=== PATIENT | female | born 1935 | race Caucasian/White ===

== ENCOUNTER 2017-04-02 21:36 | Emergency (ER) | payer MEDICARE, BC ==
[~2017-04-02] VITALS: Ht 160 cm; Wt 60.0 kg
[~2017-04-02 21:36] MED LIST: ARNIGEL TOP; LORTA5 PO; TAB-TAB PO; TIMO0.5S29 EACH EYE; WARF2.5 PO; ZOLP5TAB3 PO
[2017-04-02 21:53] VITALS: BP 144/92; PULSE 79; RESP 18; TEMP 98.3; O2SAT 97
[2017-04-02 22:00] VITALS: O2SAT 99
[2017-04-02] MEDS ORDERED: SODIUM CHLORIDE 0.9% FLUSH 10 ML FLUSH IVF PRN (22:00)
[2017-04-02] MEDS ORDERED: COUM2.5T PO (22:04)
[2017-04-02] MEDS ORDERED: AMBI5TAB PO (22:04)
[2017-04-02] MEDS ORDERED: TRAM50TA PO (22:04)
[2017-04-02 22:55] LABS: AUTOMATED NEUTROPHIL # 3.7 TH/MM3 (1.8-7.7); BASOPHIL % 0.1 % (0.0-2.0); HEMATOCRIT 36.2 % (35.0-46.0); HEMO FLAGS DIFF FINAL; LYMPHOCYTE # 2.7 TH/MM3 (1.0-4.8); MEAN CELL VOLUME 92.6 FL (80.0-100.0); MEAN CORPUSCULAR HEMOGLOBIN 31.9 PG (27.0-34.0); MEAN CORPUSCULAR HGB CONC 34.5 % (32.0-36.0); MONO % 12.6 % (0.0-8.0); NEUT % 50.3 % (16.0-70.0); PLATELET COUNT 189 TH/MM3 (150-450); RED BLOOD COUNT 3.91 MIL/MM3 (4.00-5.30); RED CELL DISTRIBUTION WIDTH 13.7 % (11.6-17.2); WHITE BLOOD COUNT 7.4 TH/MM3 (4.0-11.0)
[2017-04-02 23:05] LABS: BLOOD, URINE NEG (NEG); COMMENT (UR) CATH-CULT NOT IND; CULTURE IF INDICATED CATH CULTURE NOT IND; GLUCOSE,URINE NEG (NEG); KETONE, URINE NEG (NEG); MUCUS URINE FEW /lpf (OCC); NITRITE,URINE NEG (NEG); SQUAMOUS EPITHELIAL CELL URINE <1 /hpf (0-5); URINE COLOR LIGHT-YELLOW (YELLW/STRAW)
[2017-04-02 23:17] LABS: BICARBONATE 26.3 MEQ/L (21.0-32.0); POTASSIUM 3.6 MEQ/L (3.5-5.1)
[2017-04-03] MEDS ORDERED: cefTRIAXone INJ 1,000 MG in SODIUM CHLORIDE 0.9% INJ 100 ML IV ONE ×2
[2017-04-03] MEDS ORDERED: POTA595T (00:01)
[2017-04-03] MEDS ORDERED: CELE1CAP8 PO (00:01)
[2017-04-03] MEDS ORDERED: MAGN500T5 PO (00:01)
[2017-04-03] MEDS ORDERED: PRAV20TA2 PO (00:01)
[2017-04-03] MEDS ORDERED: TIMO0.5S30 EACH EYE (00:01)
[2017-04-03] MEDS ORDERED: DONE10TA7 PO (00:01)
[2017-04-03] MEDS ORDERED: L-LY500C2 (00:01)
[2017-04-03] MEDS ORDERED: CENTTAB PO (00:01)
[2017-04-03] MEDS ORDERED: MEMA28CA PO (00:01)
[2017-04-03] MEDS ORDERED: DICLOFENAC (00:01)
[2017-04-03] MEDS ORDERED: TRAV0.00 EACH EYE (00:01)
[2017-04-03] MEDS ORDERED: CEPH-460 PO (00:04)
--- NOTE | 2017-04-03 00:05 | PD ---
HPI . Altered mental status Chief Complaint: Medical Clearance Time Seen by Provider: 21:53 Travel History International Travel<30 days: No Contact w/Intl Traveler<30days: No Traveled to known affect area: No History of Present Illness HPI Patient was brought to us by [facility] with the chief complaint, per the patient's , of altered mental status. The patient's reports that she was laying on the couch and seemed to be asleep. He was unable to awaken her. He became concerned and called 911. He believes that she was unarousable for about 10 minutes. She is now back to her baseline. Patient denies any complaints at this time. Family reports that the patient has had several episodes where she was either passed out or sleep and could not be awakened. Her physician is aware of these. PFSH Past Medical History Cancer: No Cardiovascular Problems: No Diabetes: No Endocrine: No Genitourinary: No Hepatitis: No Hiatal Hernia: No Immune Disorder: No Musculoskeletal: Yes (NECK, ARTHRITIS) Neurologic: No Psychiatric: No Respiratory: No Immunizations Current: Yes Thyroid Disease: No Tetanus Vaccination: Unknown Past Surgical History Eye Surgery: Yes (CATARACT SX BILATE) Joint Replacement: Yes (LEFT KNEE) Neurologic Surgery: Yes (CERVICAL FUSION X 2) Oral Surgery: Yes (T&A) Pacemaker: No Social History Alcohol Use: No Tobacco Use: No Substance Use: No Allergies-Medications (Allergen,Severity, Reaction): Coded Allergies: Aspirin (Unverified Allergy, Severe, EDEMA OF EYES AND GENERLIZED, NAUSEA VOMITING, DIARRHEA, 04/02/17) Motrin (Unverified Allergy, Severe, GENERLIZED EDEMA, NAUSEA AND VOMITING , 04/02/17) ALL NSAIDS FAMILY MEMBERS Sulfa (Unverified Allergy, Severe, GENERLIZED EDEMA, NAUSEA VOMITING, ) Reported Meds & Prescriptions Reported Meds & Active Scripts Active Reported Tramadol (Tramadol HCl) 50 Mg Tab 50 Mg PO Q4H PRN Coumadin (Warfarin) 2.5 Mg Tab 2.5 Mg PO DAILY Ambien (Zolpidem Tartrate) 5 Mg Tab 5 Mg PO HS PRN Review of Systems Except as stated in HPI: all other systems reviewed are Neg Neurologic: Positive: Change in Mentation Physical Exam Narrative GENERAL: Patient is awake and alert and fully oriented. SKIN: Warm and dry. HEAD: Atraumatic. Normocephalic. EYES: Pupils equal and round. Extraocular movements are intact. ENT: No nasal bleeding or discharge. Mucous membranes pink and moist. NECK: Trachea midline. Neck is supple. CARDIOVASCULAR: Regular rate and rhythm. Heart sounds are normal. RESPIRATORY: No accessory muscle use. Lungs are clear with full air movement throughout. GASTROINTESTINAL: Abdomen soft, non-tender, nondistended. MUSCULOSKELETAL: No obvious deformities. No edema. NEUROLOGICAL: Awake and alert. No obvious cranial nerve deficits. Motor grossly within normal limits. Normal speech. PSYCHIATRIC: Appropriate mood and affect; insight and judgment normal. Data Data Last Documented VS Vital Signs Date Time Temp Pulse Resp B/P Pulse Ox O2 Delivery O2 Flow Rate FiO2 04/02/17 21:53 98.3 79 18 144/92 97 Room Air Orders Basic Metabolic Panel (Bmp) (04/02/17 21:53) Complete Blood Count With Diff (04/02/17 21:53) Urinalysis - C+S If Indicated (04/02/17 21:53) Blood Glucose (04/02/17 21:53) Ecg Monitoring (04/02/17 21:53) Iv Access Insert/Monitor (04/02/17 21:53) Oximetry (04/02/17 21:53) Sodium Chloride 0.9% Flush (Ns Flush) (04/02/17 22:00) Labs Laboratory Tests Test 04/02/17 22:30 White Blood Count 7.4 TH/MM3 Red Blood Count 3.91 MIL/MM3 Hemoglobin 12.5 GM/DL Hematocrit 36.2 % Mean Corpuscular Volume 92.6 FL Mean Corpuscular Hemoglobin 31.9 PG Mean Corpuscular Hemoglobin 34.5 % Concent Red Cell Distribution Width 13.7 % Platelet Count 189 TH/MM3 Mean Platelet Volume 8.3 FL Neutrophils (%) (Auto) 50.3 % Lymphocytes (%) (Auto) 37.0 % Monocytes (%) (Auto) 12.6 % Eosinophils (%) (Auto) 0.0 % Basophils (%) (Auto) 0.1 % Neutrophils # (Auto) 3.7 TH/MM3 Lymphocytes # (Auto) 2.7 TH/MM3 Monocytes # (Auto) 0.9 TH/MM3 Eosinophils # (Auto) 0.0 TH/MM3 Basophils # (Auto) 0.0 TH/MM3 CBC Comment DIFF FINAL Differential Comment Urine Color LIGHT-YELLOW Urine Turbidity CLEAR Urine pH 7.0 Urine Specific [place] 1.009 Urine Protein NEG mg/dL Urine Glucose (UA) NEG mg/dL Urine Ketones NEG mg/dL Urine Occult Blood NEG Urine Nitrite NEG Urine Bilirubin NEG Urine Urobilinogen LESS THAN 2.0 MG/DL Urine Leukocyte Esterase MOD Urine RBC 1 /hpf Urine WBC 5 /hpf Urine Squamous Epithelial <1 /hpf Cells Urine Mucus FEW /lpf Microscopic Urinalysis Comment CATH-CULT NOT IND Sodium Level 136 MEQ/L Potassium Level 3.6 MEQ/L Chloride Level 100 MEQ/L Carbon Dioxide Level 26.3 MEQ/L Anion Gap 10 MEQ/L Blood Urea Nitrogen 12 MG/DL Creatinine 0.69 MG/DL Estimat Glomerular Filtration 82 ML/MIN Rate Random Glucose 89 MG/DL Calcium Level 8.8 MG/DL [facility] Medical Decision Making Medical Screen Exam Complete: Yes Emergency Medical Condition: Yes Differential Diagnosis Differential diagnosis of altered mental status includes but is not limited to infection, electrolyte abnormality, neurological event, intoxication Narrative Course Patient presents by EMS for a brief episode of altered mental status. She is expected to baseline. She has a positive previous similar history. CBC & BMP Diagram 04/02/17 22:30 UA shows + leukocyte esterase. Patient will be treated for UTI. Patient and family are comfortable with discharge. The patient does not want to be admitted. She will follow-up with her primary care physician for further evaluation as an outpatient. Diagnosis Primary Impression: Altered mental status Qualified Code: R40.0 - Somnolence Additional Impression: Urinary tract infection Qualified Code: N30.00 - Acute cystitis without hematuria Scripts Cephalexin (Keflex)500 Mg [id number] Mg PO Q8H #15 CAP Ref 0 Prov:Madie Jesus MD 04/03/17 Disposition: DISCHARGE HOME Condition: Stable Madie Jesus MD April 03, 2017 00:04
[2017-04-03 01:21] VITALS: BP 138/66
[2017-04-04] MEDS ORDERED: DICL1GEL7 TOPICAL (21:04)
== END 2017-04-03 01:36 | disposition home or self-care (01) ==
LOC: NEPE 21:36
DX: R40.0 Somnolence (principal); N30.00 Acute cystitis without hematuria
CPT/HCPCS: 80048; 81001; 85025; 96365; 99285; J0696